=== PATIENT | female | born 1990 | race Caucasian/White ===

== ENCOUNTER 2017-09-15 16:37 | Emergency (ER) | payer OTHER, SELFPAY ==
[2017-09-15 17:40] LABS: Absolute Lymphocytes (CBC) 2.4 K/uL (0.7-4.9); Absolute Monocytes 0.5 K/uL (0.1-1.3); Absolute Neutrophil 5.7 K/uL (1.8-8.0); Basophils % 0.6 % (0-1.3); Hematocrit 41.4 % (36.0-45.0); Lymphocytes % 27.7 % (15.3-44.8); MCH 26.3 pg (27.0-35.0); MCV 79.6 fL (80-100); MPV 9.6 fL (7.6-11.3); Monocytes % 6.1 % (3.3-12.3)
[2017-09-15 17:47] LABS: ALT/SGPT 17 U/L (12-78); AST/SGOT 15 U/L (15-37); Albumin 3.7 g/dL (3.4-5.0); Alkaline Phosphatase 65 U/L (45-117); BUN Blood Urea Nitrogen 15 mg/dL (7-18); Bicarbonate 27 mmol/L (21-32); Bilirubin Direct < 0.1 mg/dL (0-0.2); Bilirubin Total 0.1 mg/dL (0.2-1.0); Glucose Level 88 mg/dL (74-106); Lipase 192 U/L (73-393); Potassium 3.3 mmol/L (3.5-5.1); Protein, Total 7.1 g/dL (6.4-8.2); Sodium Level 141 mmol/L (136-145)
--- NOTE | 2017-09-15 18:17 | RAD REPORT ---
EXAM DESCRIPTION: RAD - Chest Single View - 09/15/2017 6:01 pm CLINICAL HISTORY: CHEST PAIN Chest pain. COMPARISON: None FINDINGS: Portable technique limits examination quality. The lungs are grossly clear. The heart is normal in size. No displaced fractures. IMPRESSION: No acute intrathoracic process suspected.
--- NOTE | 2017-09-15 18:19 | RAD REPORT ---
EXAM DESCRIPTION: US - Abdomen Exam Limited - 09/15/2017 5:45 pm CLINICAL HISTORY: RUQ pain;Abd pain COMPARISON: No comparisons FINDINGS: The gallbladder demonstrates no gallstones. No pericholecystic fluid or gallbladder wall t hickening. The common bile duct is normal measuring 4 mm. The liver demonstrates no findings of intrahepatic biliary dilatation. IMPRESSION: Unremarkable examination.
[2017-09-15 18:52] LABS: Urine Blood NEGATIVE (NEG); Urine Glucose NEGATIVE (NEG); Urine Protein NEGATIVE (NEG); Urine pH 7.5 (5.0-7.0)
--- NOTE | 2017-09-15 18:53 | EDPHYS ---
Physician Documentation [facility] Name: Milena Peralta Age: 27 yrs Sex: Female : 1990 Arrival Date: 09/15/2017 Time: 16:40 Bed 19 Private MD: ED Physician Jaquan Gibbs HPI: 09/15 19:34 This 27 yrs old Female presents to ER via Ambulatory with complaints of Right jr8 sided chest pain. 19:34 Onset: The symptoms/episode began/occurred gradually, 2 day(s) ago, and became worse jr8 and became persistent. The symptoms do not radiate. Associated signs and symptoms: none. The symptoms are described as sharp. Modifying factors: The symptoms are alleviated by nothing, the symptoms are aggravated by nothing. Severity of pain: At its worst the pain was moderate in the emergency department the pain is unchanged. The patient has not experienced similar symptoms in the past. The patient has not recently seen a physician. Patient stated that she has this sharp pain under her right breast. Worse with cough . 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 - Social history:: Smoking status: Patient uses tobacco products, smokes one pack cigarettes per day. Patient uses alcohol, occasionally. - Ebola Screening: : Patient negative for fever greater than or equal to 101.5 degrees Fahrenheit, and additional compatible Ebola Virus Disease symptoms Patient denies exposure to infectious person Patient denies travel to an Ebola-affected area in the 21 days before illness onset. ROS: 19:34 Eyes: Negative for injury, pain, redness, and discharge, ENT: Negative for injury, jr8 pain, and discharge, Neck: Negative for injury, pain, and swelling, Abdomen/GI: Negative for abdominal pain, nausea, vomiting, diarrhea, and constipation, Back: Negative for injury and pain, MS/Extremity: Negative for injury and deformity, Skin: Negative for injury, rash, and discoloration, Neuro: Negative for headache, weakness, numbness, tingling, and seizure. 19:34 Cardiovascular: Positive for chest pain, with cough, with movement, Negative for edema, orthopnea, palpitations, paroxysmal nocturnal dyspnea. 19:34 Respiratory: Positive for cough, Negative for dyspnea on exertion, shortness of breath, sputum production, wheezing. Exam: 19:34 Eyes: Pupils equal round and reactive to light, extra-ocular motions intact. Lids and jr8 lashes normal. Conjunctiva and sclera are non-icteric and not injected. Cornea within normal limits. Periorbital areas with no swelling, redness, or edema. ENT: Nares patent. No nasal discharge, no septal abnormalities noted. Tympanic membranes are normal and external auditory canals are clear. Oropharynx with no redness, swelling, or masses, exudates, or evidence of obstruction, uvula midline. Mucous membranes moist. Neck: Trachea midline, no thyromegaly or masses palpated, and no cervical lymphadenopathy. Supple, full range of motion without nuchal rigidity, or vertebral point tenderness. No Meningismus. Chest/axilla: Normal chest wall appearance and motion. Nontender with no deformity. No lesions are appreciated. Cardiovascular: Regular rate and rhythm with a normal S1 and S2. No gallops, murmurs, or rubs. Normal PMI, no JVD. No pulse deficits. Respiratory: Lungs have equal breath sounds bilaterally, clear to auscultation and percussion. No rales, rhonchi or wheezes noted. No increased work of breathing, no retractions or nasal flaring. Abdomen/GI: Soft, non-tender, with normal bowel sounds. No distension or tympany. No guarding or rebound. No evidence of tenderness throughout. Back: No spinal tenderness. No costovertebral tenderness. Full range of motion. Skin: Warm, dry with normal turgor. Normal color with no rashes, no lesions, and no evidence of cellulitis. MS/ Extremity: Pulses equal, no cyanosis. Neurovascular intact. Full, normal range of motion. Neuro: Awake and alert, GCS 15, oriented to person, place, time, and situation. Cranial nerves II-XII grossly intact. Motor strength 5/5 in all extremities. Sensory grossly intact. Cerebellar exam normal. Normal gait. Vital Signs: 16:47 BP 126 / 94; Pulse 83; Resp 18; Temp 99.3(TE); Pulse Ox 99% on R/A; Weight 58.97 kg; hj Height 5 ft. 5 in. (165.10 cm); Pain 6/10; 18:20 BP 111 / 78; Pulse 70; Resp 16; Pulse Ox 98% on R/A; mh5 18:51 BP 123 / 98; Pulse 81; Resp 16; Temp 99.1(O); Pulse Ox 99% ; jl7 16:47 Body Mass Index 21.63 (58.97 kg, 165.10 cm) MDM: 16:51 Patient medically screened. [facility] 18:52 Data reviewed: vital signs, nurses notes, lab test result(s), radiologic studies, plain [facility] films, ultrasound, and as a result, I will discharge patient. Data interpreted: Pulse oximetry: on room air is 99 %. Interpretation: normal. Counseling: I had a detailed discussion with the patient and/or guardian regarding: the historical points, exam findings, and any diagnostic results supporting the discharge/admit diagnosis, lab results, radiology results, the need for outpatient follow up, a family practitioner, to return to the emergency department if symptoms worsen or persist or if there are any questions or concerns that arise at home. 09/15 16:52 Order name: Basic Metabolic Panel; Complete Time: 17:50 [facility] 09/15 16:52 Order name: CBC with Diff; Complete Time: 17:50 [facility] 09/15 16:52 Order name: Creatinine for Radiology; Complete Time: 17:50 [facility] 09/15 16:52 Order name: Hepatic Function; Complete Time: 17:50 [facility] 09/15 16:52 Order name: Lipase; Complete Time: 17:50 [facility] 09/15 18:20 Order name: Urine Dipstick--Ancillary (enter results); Complete Time: 18:54 09/15 16:50 Order name: Urine Dipstick-Ancillary (obtain specimen); Complete Time: 18:13 09/15 16:50 Order name: Urine Test (obtain specimen); Complete Time: 18:13 09/15 16:52 Order name: IV Saline Lock; Complete Time: 17:19 [facility] 09/15 16:52 Order name: Labs collected and sent; Complete Time: 17:19 [facility] 09/15 17:08 Order name: US Abdomen Limited; Complete Time: 18:21 [facility] 09/15 17:08 Order name: XRAY Chest (1 view); Complete Time: 18:21 [facility] 09/15 18:20 Order name: Urine --Ancillary (enter results); Complete Time: 18:54 bd Administered Medications: No medications were administered Disposition: 09/16 07:08 Co-signature as Attending Physician, Jaquan Gibbs MD. rn Disposition: 09/15/17 18:53 Discharged to Home. Impression: Chest wall pain. - Condition is Stable. - Discharge Instructions: Chest Wall Pain. - Prescriptions for Mobic 7.5 mg Oral Tablet - take 1 tablet by ORAL route once daily take with food; 20 tablet. - Medication Reconciliation Form, Thank You Letter, Antibiotic Education, Prescription Opioid Use form. - Follow up: Private Physician; When: 5 - 6 days; Reason: Recheck today's complaints, Continuance of care, Re-evaluation by your physician. - Problem is new. - Symptoms have improved. Signatures: Dispatcher [employer] EDMS Jaquan Gibbs MD MD rn Roszak, Josh, PA PA jr8 Kevin Estes RN RN hj Bryson, James, RN RN jb4 Corrections: (The following items were deleted from the chart) 09/15 19:05 18:53 09/15/2017 18:53 Discharged to Home. Impression: Chest wall pain. Condition is jb4 Stable. Forms are Medication Reconciliation Form, Thank You Letter, Antibiotic Education, Prescription Opioid Use. Follow up: Private Physician; When: 5 - 6 days; Reason: Recheck today's complaints, Continuance of care, Re-evaluation by your physician. Problem is new. Symptoms have improved. jr8
--- NOTE | 2017-09-15 18:53 | ER ---
Nurse's Notes [facility] Name: Milena Peralta Age: 27 yrs Sex: Female : 1990 Arrival Date: 09/15/2017 Time: 16:40 Bed 19 Private MD: Diagnosis: Chest wall pain Presentation: 09/15 16:42 Presenting complaint: Patient states: for a bout 5 days, patricia been having pain on my R hj upper abd and its getting worse, reports nausea; denies fever and chills; LMP- 08/30/17; pain radiates to the back;. Transition of care: patient was not received from another setting of care. Onset of symptoms was September 15, 2017. Risk Assessment: Do you want to hurt yourself or someone else? Patient reports no desire to harm self or others. Initial Sepsis Screen: Does the patient meet any 2 criteria? No. Patient's initial sepsis screen is negative. Does the patient have a suspected source of infection? No. Patient's initial sepsis screen is negative. Care prior to arrival: None. 16:42 Method Of Arrival: Ambulatory 16:42 Acuity: LYNNETTE 3 Triage Assessment: 16:46 General: Appears in no apparent distress. uncomfortable, Behavior is calm, cooperative, hj appropriate for age. Pain: Complains of pain in right upper quadrant. GI: Reports upper abdominal pain, nausea. 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 - Social history:: Smoking status: Patient uses tobacco products, smokes one pack cigarettes per day. Patient uses alcohol, occasionally. - Ebola Screening: : Patient negative for fever greater than or equal to 101.5 degrees Fahrenheit, and additional compatible Ebola Virus Disease symptoms Patient denies exposure to infectious person Patient denies travel to an Ebola-affected area in the 21 days before illness onset. Screenin:47 Abuse screen: Denies threats or abuse. Denies injuries from another. Nutritional hj screening: No deficits noted. Tuberculosis screening: No symptoms or risk factors identified. Fall Risk None identified. Assessment: 16:47 GI: Bowel sounds present X 4 quads. Abd is soft Abdomen is tender to palpation. hj 17:00 General: Appears in no apparent distress. uncomfortable, Behavior is calm, cooperative, jl7 appropriate for age. Pain: Complains of pain in right upper quadrant Pain does not radiate. Pain currently is 6 out of 10 on a pain scale. Quality of pain is described as pain. Neuro: Level of Consciousness is awake, alert, obeys commands, Oriented to person, place, time, situation. Cardiovascular: Patient's skin is warm and dry. Respiratory: Airway is patent Respiratory effort is even, unlabored, Respiratory pattern is regular, symmetrical. GI: Bowel sounds present X 4 quads. Abd is soft Abdomen is tender to palpation in right upper quadrant Reports nausea, Patient currently denies diarrhea. : No signs and/or symptoms were reported regarding the genitourinary system. EENT: No signs and/or symptoms were reported regarding the EENT system. Derm: Skin is pink, warm \T\ dry. Musculoskeletal: No signs and/or symptoms reported regarding the musculoskeletal system. 18:00 Reassessment: No changes from previously documented assessment. Patient and/or family jl7 updated on plan of care and expected duration. Pain level reassessed. Patient is alert, oriented x 3, equal unlabored respirations, skin warm/dry/pink. 18:51 Reassessment: MYCHAL Sarmiento at bedside discussing plan of care. jl7 Vital Signs: 16:47 BP 126 / 94; Pulse 83; Resp 18; Temp 99.3(TE); Pulse Ox 99% on R/A; Weight 58.97 kg; hj Height 5 ft. 5 in. (165.10 cm); Pain 6/10; 18:20 BP 111 / 78; Pulse 70; Resp 16; Pulse Ox 98% on R/A; mh5 18:51 BP 123 / 98; Pulse 81; Resp 16; Temp 99.1(O); Pulse Ox 99% ; jl7 16:47 Body Mass Index 21.63 (58.97 kg, 165.10 cm) ED Course: 16:40 Patient arrived in ED. do 16:45 Triage completed. hj 16:47 Arm band placed on left wrist. 16:51 [facility] jr8 16:51 Jaquan Gibbs MD is Attending Physician. jr8 16:53 Gordon Patel, RN is Primary Nurse. jl7 17:18 Initial lab(s) drawn, by me, sent to lab. Inserted saline lock: 20 gauge in right mh5 antecubital area, using aseptic technique. Blood collected. 17:19 Patient has correct armband on for positive identification. Placed in gown. Bed in low mh5 position. Call light in reach. Side rails up X 1. Warm blanket given. Pulse ox on. NIBP on. 17:19 Basic Metabolic Panel Sent. 5 17:19 CBC with Diff Sent. 5 17:19 Creatinine for Radiology Sent. 5 17:19 Hepatic Function Sent. 5 17:19 Lipase Sent. 5 17:43 Ultrasound completed. Patient tolerated well. aa4 17:43 US Abdomen Limited In Process Unspecified. EDMS 18:01 XRAY Chest (1 view) In Process Unspecified. EDMS 19:01 No provider procedures requiring assistance completed. IV discontinued, intact, jb4 bleeding controlled, No redness/swelling at site. Pressure dressing applied. Administered Medications: No medications were administered Outcome: 18:53 Discharge ordered by . jr8 19:01 Discharged to home ambulatory. jb4 19:01 Condition: stable 19:01 Discharge instructions given to patient, Instructed on discharge instructions, follow up and referral plans. medication usage, Demonstrated understanding of instructions, follow-up care, medications, Prescriptions given X 1. 19:05 Patient left the ED. jb4 Signatures: Dispatcher [employer] EDUT EucedaMyriam bautista aa4 Kayla Mohan, JOSE G RN aa5 Torsten Matthew PA PA jr8 Kevin Estes RN RN hj Ogletree, Danielle do Bryson, James, RN RN jb4 Martinez, Maria [facility] Gordon Patel, RN RN jl7 Corrections: (The following items were deleted from the chart) 16:49 16:47 58.97 kg; Height 5 ft. 5 in.; BMI: 21.6; Pain 6/10; [facility] 18:47 16:52 Kayla Mohan, RN is Primary Nurse. [email or web address] aaBarron 18:47 16:53 Primary Nurse role handed off by Kayla Mohan, JOSE G jl7 aa
[2017-09-15 19:12] VITALS: BP 123/98; TEMP 99.1; O2SAT 99
== END 2017-09-15 19:05 | disposition home or self-care (01) ==
LOC: ER 16:37
DX: R07.89 Other chest pain (principal); F17.210 Nicotine dependence, cigarettes, uncomplicated
CPT/HCPCS: 36415; 71045; 76705; 80048; 80076; 81003; 81025; 83690; 85025; 99284

== ENCOUNTER 2017-12-31 10:53 | Emergency (ER) | payer SELFPAY ==
--- NOTE | 2017-12-31 14:19 | RAD REPORT ---
EXAM DESCRIPTION: CT - CTHCSPWOC - 12/31/2017 2:13 pm CLINICAL HISTORY: Fall, head, facial and neck pain COMPARISON: None. TECHNIQUE: Axial 5 mm thick images of the head were obtained. Axial 2 mm thick images of the cervic al spine were obtained with sagittal and coronal reconstruction images generated and reviewed. All CT scans are performed using dose optimization technique as appropriate and may include automated exposure control or mA/KV adjustment according to patient size. FINDINGS: No intracranial hemorrhage, mass, edema or acute intracranial finding. No extra-axial fluid collectio ns. Mastoid air cells are clear. Cervical body height and alignment are normal. No disk space narrowing. No fracture or acute bony abn ormality. No paraspinal mass or hematoma. IMPRESSION: Negative CT head examination for acute or significant finding. Orbits, sinuses and facial bones are separately detailed. Negative CT cervical spine examination for acute or significant finding.
--- NOTE | 2017-12-31 14:23 | RAD REPORT ---
EXAM DESCRIPTION: CT - Facial Bones W/ Mpr - 12/31/2017 2:13 pm CLINICAL HISTORY: Fall, facial pain COMPARISON: None. TECHNIQUE: Axial 2 millimeter thick images of the facial bones were obtained with sagittal and coron al reconstruction imaging. All CT scans are performed using dose optimization technique as appropriate and may include automated exposure control or mA/KV adjustment according to patient size. FINDINGS: No mandible fracture. There is minimal soft tissue injury anterior to the midline mandible . Condyles are normally positioned. Mastoid air cells are clear. No facial bone fractures seen. Paran jin sinuses are clear. No globe or orbital content abnormality. No foreign body or air in the soft t issues. IMPRESSION: No fracture or significant facial injury identifiable.
[2017-12-31] MEDS ORDERED: TETANUS & DIPHTHERIA TOX,ADULT 0.5 ML VIAL ONE (14:57)
--- NOTE | 2017-12-31 15:00 | EDPHYS ---
Physician Documentation [facility] Name: Milena Peralta Age: 27 yrs Sex: Female : 1990 Arrival Date: 12/31/2017 Time: 10:56 Bed Treatment Private MD: ED Physician Haroldo Ch HPI: 12/31 13:45 This 27 yrs old Female presents to ER via Ambulatory with complaints of cp Laceration To Chin. 13:45 The patient has a laceration occurred at home, The injury was resulted from fall while cp walking. Onset: The symptoms/episode began/occurred last night, at 23:00. Associated signs and symptoms: Pertinent positives: loss of consciousness, Pertinent negatives: heavy bleeding. 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 - Social history:: Smoking status: Patient uses tobacco products, smokes one-half pack cigarettes per day. - Ebola Screening: : No symptoms or risks identified at this time. ROS: 13:50 Constitutional: Negative for body aches, chills, fever, poor PO intake. cp 13:50 Eyes: Negative for injury, pain, redness, and discharge. cp 13:50 ENT: Positive for jaw pain, Negative for drainage from ear(s), ear pain, sore throat, difficulty swallowing, difficulty handling secretions. 13:50 Neck: Positive for bony tenderness, Negative for stiffness. 13:50 Respiratory: Negative for cough, wheezing. 13:50 Abdomen/GI: Negative for abdominal pain, vomiting, diarrhea, constipation. 13:50 Skin: Positive for laceration(s), of the chin, Negative for cellulitis, rash. 13:50 Neuro: Positive for headache, loss of consciousness, Negative for altered mental status, weakness. 13:50 All other systems are negative. Exam: 14:00 Constitutional: The patient appears in no acute distress, alert, awake, non-toxic, well cp developed, well nourished. 14:00 Eyes: Pupils equal round and reactive to light, extra-ocular motions intact. Lids and cp lashes normal. Conjunctiva and sclera are non-icteric and not injected. Cornea within normal limits. Periorbital areas with no swelling, redness, or edema. 14:00 Head/face: Noted is a laceration(s), that is superficial, 2 cm(s), of the chin, pain bilateral lower jaw. 14:00 ENT: External ear(s): are unremarkable, Ear canal(s): are normal, clear, TM's: dullness, bilaterally, Nose: is normal, Mouth: Lips: moist, Oral mucosa: pink and intact, moist, Posterior pharynx: is normal, airway is patent, no erythema, no exudate, Dental exam: normal, Voice: is normal. 14:00 Neck: C-spine: C-collar placed in ED, vertebral tenderness, that is mild, crepitus, is not appreciated. 14:00 Chest/axilla: Inspection: normal, Palpation: is normal, no crepitus, no tenderness. 14:00 Cardiovascular: Rate: normal, Rhythm: regular. 14:00 Respiratory: the patient does not display signs of respiratory distress, Respirations: normal, no use of accessory muscles, no retractions, no splinting, no tachypnea, labored breathing, is not present, Breath sounds: are clear throughout, no decreased breath sounds, no stridor, no wheezing. 14:00 Abdomen/GI: Inspection: abdomen appears normal, Palpation: abdomen is soft and non-tender, in all quadrants. 14:00 Back: pain, is absent, ROM is normal. 14:00 Musculoskeletal/extremity: Exam is negative for decreased range of motion, deformity, injury. 14:00 Neuro: Orientation: to person, place \T\ time. Mentation: is normal, Cerebellar function: is grossly normal, Motor: moves all fours, strength is normal, Sensation: is normal. Vital Signs: 11:17 BP 118 / 78; Pulse 86; Resp 16 S; Temp 98.6(TE); Pulse Ox 100% on R/A; Weight 58.97 kg aa5 (R); Height 5 ft. 5 in. (165.10 cm) (R); Pain 6/10; 11:17 Body Mass Index 21.63 (58.97 kg, 165.10 cm) aa5 MDM: 13:07 Patient medically screened. [facility] 14:00 Differential diagnosis: superficial laceration, facial fracture, dental injury. cp 14:55 Data reviewed: vital signs, nurses notes, radiologic studies, CT scan, and as a result, cp I will discharge patient. 14:55 Counseling: I had a detailed discussion with the patient and/or guardian regarding: the cp historical points, exam findings, and any diagnostic results supporting the discharge/admit diagnosis, radiology results, to return to the emergency department if symptoms worsen or persist or if there are any questions or concerns that arise at home. Special discussion: Based on the patient's history, exam and DX evaluation, there is no indication for emergent intervention or inpatient TX. It is understood by the patient/guardian that if the SXs persist or worsen they need to return immediately for re-evaluation. ED course: VSS. Wound cleaned and steri strips applied to wound. Will discharge to home for continued monitoring. 12/31 13:41 Order name: CT Facial Bones W/O Con; Complete Time: 14:25 12/31 14:26 Interpretation: Report reviewed. 12/31 13:41 Order name: CT Head C Spine; Complete Time: 14:25 12/31 14:26 Interpretation: Reviewed report. 12/31 14:41 Order name: Wound Care: please clean and dress wound with steri strips; Complete Time: cp 15:22 Administered Medications: 14:52 Drug: Tetanus-Diphtheria Toxoid Adult 0.5 ml {Traffic Officer: [email or web address]. Exp: ss 10/27/2020. Lot #: [id number]. } Route: IM; Site: left deltoid; 15:12 Follow up: Response: No adverse reaction ss Disposition: 12/31/17 14:59 Discharged to Home. Impression: Laceration of Chin, Other slipping, tripping and stumbling and falls, Concussion with loss of consciousness of unspecified duration. - Condition is Stable. - Discharge Instructions: Concussion, Adult, Head Injury, Adult, Facial Laceration. - Prescriptions for Keflex 500 mg Oral Capsule - take 1 capsule by ORAL route every 8 hours for 10 days; 30 capsule. - Medication Reconciliation Form, Thank You Letter, Antibiotic Education, Prescription Opioid Use form. - Follow up: Private Physician; When: 48 Hours; Reason: Wound Recheck. - Problem is new. - Symptoms have improved. Addendum: 01/03/2018 08:10 Co-signature as Attending Physician, Haroldo Ch MD I agree with the assessment and c whatley plan of care. Signatures: Dispatcher [employer] EDHaroldo Alaniz MD MD cha Calderon, Audri, RN RN aa5 Maria E Quinones RN RN ss Haroldo Cuevas PA PA cp Corrections: (The following items were deleted from the chart) 12/31 15:31 14:59 12/31/2017 14:59 Discharged to Home. Impression: Laceration of Chin; Other ss slipping, tripping and stumbling and falls; Concussion with loss of consciousness of unspecified duration. Condition is Stable. Forms are Medication Reconciliation Form, Thank You Letter, Antibiotic Education, Prescription Opioid Use. Follow up: Private Physician; When: 48 Hours; Reason: Wound Recheck. Problem is new. Symptoms have improved. cp
--- NOTE | 2017-12-31 15:00 | ER ---
Nurse's Notes [facility] Name: Milena Peralta Age: 27 yrs Sex: Female : 1990 Arrival Date: 12/31/2017 Time: 10:56 Bed Treatment Private MD: Diagnosis: Laceration of Chin;Other slipping, tripping and stumbling and falls;Concussion with loss of consciousness of unspecified duration Presentation: 12/31 11:15 Presenting complaint: Patient states: "I missed a step and fell onto my chin last aa5 night". pt c/o jaw pain and laceration to chin that measures approximately 1 cm long, no active bleeding noted. Transition of care: patient was not received from another setting of care. Complicating Factors: There are no complicating factors for this patient. Onset of symptoms was December 30, 2017. Risk Assessment: Do you want to hurt yourself or someone else? Patient reports no desire to harm self or others. Initial Sepsis Screen: Does the patient meet any 2 criteria? No. Patient's initial sepsis screen is negative. Does the patient have a suspected source of infection? No. Patient's initial sepsis screen is negative. Care prior to arrival: None. 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 - Social history:: Smoking status: Patient uses tobacco products, smokes one-half pack cigarettes per day. - Ebola Screening: : No symptoms or risks identified at this time. Screenin:06 Abuse screen: Denies threats or abuse. Denies injuries from another. Nutritional ss screening: No deficits noted. Tuberculosis screening: No symptoms or risk factors identified. Never had TB. Fall Risk None identified. Assessment: 13:06 General: Appears uncomfortable, Behavior is calm, cooperative, Denies fever, feeling ss ill, fatigue, chills. Pain: Complains of pain in chin, right jaw and left jaw Pain currently is 8 out of 10 on a pain scale. Quality of pain is described as aching, Pain began last night after slipping on stairs Is continuous, Aggravated by opening mouth. Neuro: Level of Consciousness is awake, alert, obeys commands, Oriented to person, place, time, situation. Cardiovascular: Capillary refill < 3 seconds is brisk in bilateral fingers Patient's skin is warm and dry. Respiratory: Airway is patent Respiratory effort is even, unlabored, Respiratory pattern is regular, symmetrical. GI: No signs and/or symptoms were reported involving the gastrointestinal system. EENT: Oral mucosa is moist. Derm: Skin is pink, warm \\T\\ dry. Musculoskeletal: Circulation, motion, and sensation intact. Range of motion: intact in all extremities, Swelling absent. Injury Description: Laceration sustained to chin is clean, 0.5 to 2.5 cm long, not bleeding, was sustained last night. 13:44 Reassessment: c collar applied as requested by MYCHAL Travis. ss Vital Signs: 11:17 BP 118 / 78; Pulse 86; Resp 16 S; Temp 98.6(TE); Pulse Ox 100% on R/A; Weight 58.97 kg aa5 (R); Height 5 ft. 5 in. (165.10 cm) (R); Pain 6/10; 11:17 Body Mass Index 21.63 (58.97 kg, 165.10 cm) aa5 ED Course: 10:56 Patient arrived in ED. rg4 11:15 Arm band placed on. aa5 11:16 Triage completed. aa5 13:04 Haroldo Cuevas PA is PHCP. cp 13:04 Haroldo Ch MD is Attending Physician. cp 13:06 Maria E Quinones, JOSE G is Primary Nurse. ss 13:06 Patient has correct armband on for positive identification. Bed in low position. Call ss light in reach. Side rails up X 1. 14:13 CT Facial Bones W/O Con In Process Unspecified. EDMS 14:13 CT Head C Spine In Process Unspecified. EDMS 15:30 No provider procedures requiring assistance completed. Patient did not have IV access ss during this emergency room visit. Wound care: to laceration located on chin was cleaned with Hibiclens, dressed with steri strips. . 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 Exp: ss 10/27/2020. Lot #: [id number]. } Route: IM; Site: left deltoid; 15:12 Follow up: Response: No adverse reaction Outcome: 14:59 Discharge ordered by . cp 15:31 Discharged to home ambulatory. ss 15:31 Condition: good 15:31 Discharge instructions given to patient, Instructed on discharge instructions, follow up and referral plans. medication usage, wound care, Demonstrated understanding of Prescriptions given X 1. 15:31 Patient left the ED. Signatures: Dispatcher [employer] Kayla Castellanos RN RN aa5 Maria E Quinones RN RN ss Haroldo Cuevas, MYCHAL PA Martha Apodaca4
[2017-12-31 16:06] VITALS: BP 118/78; TEMP 98.6; O2SAT 100
== END 2017-12-31 15:31 | disposition home or self-care (01) ==
LOC: ER 10:53
DX: S01.81XA Laceration without foreign body of other part of head, initial encounter (principal); W01.0XXA Fall on same level from slipping, tripping and stumbling without subsequent striking against object, initial encounter; Y93.01 Activity, walking, marching and hiking; Y92.009 Unspecified place in unspecified non-institutional (private) residence as the place of occurrence of the external cause; Z23 Encounter for immunization; F17.210 Nicotine dependence, cigarettes, uncomplicated
CPT/HCPCS: 70450; 70486; 72125; 76377; 90714; 99284

== ENCOUNTER 2021-10-06 12:58 | Emergency (ER) | payer SELFPAY ==
[2021-10-06 13:32] LABS: Urine Blood Negative (Negative); Urine Glucose Trace (Negative); Urine Protein Trace (Negative); Urine Specific Gravity >=1.030 (1.005-1.030); Urine pH 5.5 (5.0-7.0)
[2021-10-06 13:34] LABS: Absolute Lymphocytes (CBC) 0.9 K/uL (0.7-4.9); Hematocrit 44.6 % (36.0-45.0); Lymphocytes % 9.8 % (15.3-44.8); MPV 8.6 fL (7.6-11.3); RBC Red Blood Cell Count 5.72 M/uL (3.86-4.86)
[2021-10-06 13:58] LABS: Albumin 3.3 g/dL (3.4-5.0); Bilirubin Total 0.2 mg/dL (0.2-1.0); Potassium 3.1 mmol/L (3.5-5.1); Protein, Total 7.2 g/dL (6.4-8.2)
[2021-10-06] MEDS ORDERED: MORPHINE 4 MG/ML SYR ONE (14:16)
[2021-10-06] MEDS ORDERED: ONDANSETRON 4 MG/2 ML VIAL ONE (14:16)
--- NOTE | 2021-10-06 14:25 | RAD REPORT ---
EXAM DESCRIPTION: US - Transvaginal Study Probe - 10/06/2021 1:55 pm CLINICAL HISTORY: right sided pelvic pain COMPARISON: Abdomen Pelvis W Contrast dated 10/06/2021 TECHNIQUE: Endovaginal sonography was performed. FINDINGS: The 16 millimeter thin-walled anechoic cysts present in the right ovary. Bilateral subcent imeter ovarian cysts or follicles present. Doppler evaluation shows normal blood flow within the ovar nimesh stroma. No evidence for ovarian cyst rupture or hemorrhage on the left. Along the superior margin of the right ovary there is heterogeneous echogenicity that is not clearly defined. This is possibly bowel. Rupture or leakage from an ovarian cyst without hemorrhagic component is possible. A signific ant adnexal finding is not suspected. Uterus is 7.9 x 3.8 x 4.6 cm. No myometrial mass identified. Endometrial stripe is within normal rang e for age measuring 5-6 mm. A punctate nonshadowing hyperechoic focus is seen within the endometrial tissue. This is nonspecific. A nonshadowing endometrial calcification be possible. Air introduced as part of the endovaginal ultrasound examination can result in hyperechoic endometrial focus. An echoge nithin mass or polyp unlikely but not excluded. Re-evaluation could be performed in 6 months. IMPRESSION: No acute or emergent uterine, ovarian or adnexal finding identifiable. Right adnexa slig htly heterogeneous which could be leakage or rupture of a small right ovarian cyst. No significant ri ght ovarian or right adnexal finding suspected. Punctate echogenic endometrial focus in the fundus is very likely benign but can be monitored on a fo llow-up endovaginal ultrasound in 6 months.
--- NOTE | 2021-10-06 14:30 | RAD REPORT ---
EXAM DESCRIPTION: CT - Abdomen Pelvis W Contrast - 10/06/2021 2:13 pm CLINICAL HISTORY: right lower abd pain, rule out appendicitis COMPARISON: Transvaginal Study Probe dated 10/06/2021; CT HEAD SPINE CAP W CONTRAST dated 01/25/2011 TECHNIQUE: Biphasic, helical CT imaging of the abdomen and pelvis was performed following 100 ml non -ionic IV contrast. No oral contrast administered. All CT scans are performed using dose optimization technique as appropriate and may include automated exposure control or mA/KV adjustment according to patient size. FINDINGS: No suspicious findings in the lung bases. The liver, spleen, and pancreas show no suspicious findings. Gallbladder is tightly contracted. No bi liary tree dilatation. Symmetric renal function is seen with no hydronephrosis or suspicious renal mass. No pyelonephritis o r acute parenchymal process. Bladder is fully contracted limiting assessment. There is questionable c ongestion of the fat adjacent to the collapsed bladder. No uterine suspicious finding. There may be a small 15 millimeter fibroid along the left dome of the fundus. Left ovary and left adnexa are unremarkable. Small cyst is present in the right ovary. Right adnexa is slightly heterogeneous in appearance. There could be a small amount of fluid or blood from a cyst is rupture or leakage. The ultrasound did not show a collapsed or involuting right ovarian cys t. Significant adnexal finding not suspected. Normal-sized appendix is seen with air in the lumen. No dilated bowel loops or bowel wall thickening. No free air, free fluid or inflammatory stranding. No hernia, mass or bulky lymphadenopathy. No suspicious bony findings. IMPRESSION: No appendicitis or other surgically emergent finding identifiable. Right adnexa slightly congested or heterogeneous in appearance. There could be a minimal amount of bl ood or fluid from a leaking right ovarian cyst. An involuted cyst was not seen at sonography. Signifi cant right adnexal pathology is not suspected. Fatty tissues adjacent to the collapsed urinary bladder are mildly congested or edematous. Cystitis c annot be excluded but would need correlation with any supporting clinical or laboratory findings. The re is no pyelonephritis.
--- NOTE | 2021-10-06 14:33 | EDPHYS ---
Physician Documentation [facility] Name: Milena Peralta Age: 31 yrs Sex: Female : 1990 Arrival Date: 10/06/2021 Time: 12:59 Bed 26 Private MD: ED Physician Jaquan Gibbs HPI: 10/06 13:43 This 31 yrs old Female presents to ER via Ambulatory with complaints of Pelvic Pain, rn Back Pain, Nausea/Vomiting. 13:44 The patient presents with abdominal pain right lower quadrant. Onset: The rn symptoms/episode began/occurred 2 day(s) ago. The symptoms do not radiate. Associated signs and symptoms: Pertinent positives: nausea and vomiting, Pertinent negatives: blood in stools, fever, hematuria, shortness of breath, vaginal discharge, vomiting blood. The symptoms are described as sharp, stabbing. Modifying factors: The symptoms are alleviated by nothing, the symptoms are aggravated by movement, touching the area. Severity of pain: At its worst the pain was moderate in the emergency department the pain is unchanged. The patient has not experienced similar symptoms in the past. Pt reports RLQ and back pain, began 2 days ago, + subjective fever, no vaginal discharge, last LMP 1 month ago, does not believe she is . + nausea and vomiting but not sure if from pain. + painful car ride over here with each bump. . 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 - Social history:: Smoking status: Patient reports the use of cigarette tobacco products, smokes one pack cigarettes per day. - Family history:: not pertinent. - Hospitalizations: : No recent hospitalization is reported. ROS: 13:44 Constitutional: Negative for weight loss Eyes: Negative for injury, pain, redness, and rn emergency room, Cardiovascular: Negative for chest pain, palpitations, and edema, Respiratory: Negative for shortness of breath, cough, wheezing, and pleuritic chest pain, Abdomen/GI: + RLQ abd pain and nausea/vomiting Back: + lower back pain : Negative for injury, bleeding, discharge, and swelling, MS/Extremity: Negative for injury and deformity, Skin: Negative for injury, rash, and discoloration, Neuro: Negative for headache, weakness, numbness, tingling, and seizure. Exam: 13:44 Constitutional: This is a well developed, well nourished patient who is awake, alert, rn and in no acute distress. Head/Face: Normocephalic, atraumatic. Cardiovascular: Regular rate and rhythm. No pulse deficits. Respiratory: No increased work of breathing, no retractions or nasal flaring. Abdomen/GI: soft, + right lower quadrant abd tenderness with guarding, no rebound Skin: Warm, dry MS/ Extremity: Pulses equal, no cyanosis. Neuro: Awake and alert, GCS 15, oriented to person, place, time, and situation. Cranial nerves II-XII grossly intact. Motor strength 5/5 in all extremities. Sensory grossly intact. Cerebellar exam normal. Normal gait. Vital Signs: 13:02 BP 143 / 101; Pulse 96; Resp 16 S; Temp 97.5(TE); Pulse Ox 99% on R/A; Weight 54.43 kg aa5 (R); Height 5 ft. 4 in. (162.56 cm) (R); 13:37 BP 143 / 101; Pulse 88; Resp 18; Pulse Ox 100% on R/A; Pain 7/10; eh3 14:12 BP 161 / 119; Pulse 85; Resp 18; Pulse Ox 100% on R/A; Pain 8/10; eh3 13:02 Body Mass Index 20.60 (54.43 kg, 162.56 cm) aa5 MDM: 13:05 Patient medically screened. rn 14:31 Differential diagnosis: appendicitis, Ectopic , Endometriosis, non-specific rn abd pain, Ovarian Torsion, Ureterolithiasis, urinary tract infection, ovarian cyst, ruptured ovarian cyst. Data reviewed: vital signs, nurses notes, lab test result(s), radiologic studies, CT scan, ultrasound, and as a result, I will discharge patient. Counseling: I had a detailed discussion with the patient and/or guardian regarding: the historical points, exam findings, and any diagnostic results supporting the discharge/admit diagnosis, lab results, radiology results, the need for outpatient follow up, to return to the emergency department if symptoms worsen or persist or if there are any questions or concerns that arise at home. Response to treatment: the patient's symptoms have mildly improved after treatment, and as a result, I will discharge patient. Special discussion: Based on the patient's Hx, exam, and Dx evaluation, there is no indication for emergent surgery or inpatient Tx. It is understood by the patient/guardian that if the Sx's persist or worsen they need to return immediately for re-evaluation. I discussed with the patient/guardian in detail that at this point there is no indication for admission to the hospital. It is understood, however, that if the symptoms persist or worsen the patient needs to return immediately for re-evaluation. 10/06 13:14 Order name: CBC with Diff; Complete Time: 13:59 rn 10/06 13:14 Order name: CMP; Complete Time: 13:59 rn 10/06 13:14 Order name: Lipase; Complete Time: 13:59 rn 10/06 13:14 Order name: CT Abd/Pelvis - IV Contrast Only; Complete Time: 14:31 rn 10/06 13:32 Order name: Urine Dipstick-Ancillary; Complete Time: 13:59 EDMS 10/06 13:14 Order name: IV Saline Lock; Complete Time: 13:33 rn 10/06 13:14 Order name: Labs collected and sent; Complete Time: 13:33 rn 10/06 13:14 Order name: Urine Dipstick-Ancillary (obtain specimen); Complete Time: 13:33 rn 10/06 13:14 Order name: Urine Test (obtain specimen); Complete Time: 13:33 rn 10/06 13:56 Order name: Transvaginal Study Probe; Complete Time: 14:29 EDMS Administered Medications: 14:19 Drug: Zofran (Ondansetron) 4 mg Route: IVP; Site: right antecubital; eh3 14:42 Follow up: Response: Nausea is decreased eh3 14:20 Drug: morphine 4 mg Route: IVP; Infused Over: 4 mins; Site: right antecubital; eh3 14:41 Follow up: Response: No adverse reaction; Pain is decreased eh3 Disposition Summary: 10/06/21 14:33 Discharge Ordered Location: Home rn Problem: new rn Symptoms: have improved rn Condition: Stable rn Diagnosis - Other and unspecified ovarian cysts - Ruptured ovarian cyst rn Followup: rn - With: Private Physician - When: As needed - Reason: Recheck today's complaints, Re-evaluation by your physician Discharge Instructions: - Discharge Summary Sheet rn - Ovarian Cyst rn Forms: - Medication Reconciliation Form rn - Thank You Letter rn - Antibiotic acetylene burner - Prescription Opioid Use rn Prescriptions: - Diclofenac Sodium 75 mg Oral tablet,delayed release (DR/EC) - take 1 tablet by ORAL route 2 times per day; 20 tablet; Refills: 0, Product rn Selection Permitted - Cipro 500 mg Oral Tablet - take 1 tablet by ORAL route every 12 hours for 7 days; 14 tablet; Refills: 0, rn Product Selection Permitted Signatures: Dispatcher [employer] EDMS Jaquan Gibbs MD MD rn Calderon, Audri RN RN aa5 Leilani Abad RN RN eh3 Corrections: (The following items were deleted from the chart) 13:55 13:15 Pelvis Complete+US.RAD.SHAWN ordered. [facility]
--- NOTE | 2021-10-06 14:33 | ER ---
Nurse's Notes [facility] Name: Milena Peralta Age: 31 yrs Sex: Female : 1990 Arrival Date: 10/06/2021 Time: 12:59 Bed 26 Private MD: Diagnosis: Other and unspecified ovarian cysts-Ruptured ovarian cyst Presentation: 10/06 13:02 Chief complaint: Patient states: pelvic pain and low back pain that began Wednesday. Pt aa5 also reports nausea and vomiting. Reports vaginal spotting for 2 days a few days ago. 13:02 Onset of symptoms was September 2021. aa5 13:02 Acuity: LYNNETTE 3 aa5 13:02 Method Of Arrival: Ambulatory aa5 13:02 Coronavirus screen: At this time, the client does not indicate any symptoms associated aa5 with coronavirus-19. Ebola Screen: Patient denies travel to an Ebola-affected area in the 21 days before illness onset. Initial Sepsis Screen: Does the patient meet any 2 criteria? No. Patient's initial sepsis screen is negative. Does the patient have a suspected source of infection? No. Patient's initial sepsis screen is negative. Risk Assessment: Do you want to hurt yourself or someone else? Patient reports no desire to harm self or others. Triage Assessment: 13:34 General: Appears in no apparent distress. comfortable, Behavior is calm, cooperative, eh3 appropriate for age. Pain: Complains of pain in right lower quadrant and left lower quadrant Pain radiates to left low back and right low back Pain currently is 7 out of 10 on a pain scale. Quality of pain is described as crampy, pressure, radiating, Pain began 2-3 days ago. Is continuous. Neuro: Level of Consciousness is awake, alert, obeys commands, Oriented to person, place, time, situation. Cardiovascular: Capillary refill < 3 seconds Patient's skin is warm and dry. Respiratory: Airway is patent Respiratory effort is even, unlabored. GI: Reports lower abdominal pain, cramping, intolerance of food, nausea, vomiting. GI: Abdomen is flat, non-distended. :. : Reports cramping, flank(s). Derm: No signs and/or symptoms reported regarding the dermatologic system. Musculoskeletal: Circulation, motion, and sensation intact. Range of motion: intact in all extremities. 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 - Social history:: Smoking status: Patient reports the use of cigarette tobacco products, smokes one pack cigarettes per day. - Family history:: not pertinent. - Hospitalizations: : No recent hospitalization is reported. Screenin:39 Abuse screen: Denies threats or abuse. Denies injuries from another. Nutritional eh3 screening: No deficits noted. Tuberculosis screening: No symptoms or risk factors identified. Fall Risk None identified. Assessment: 13:39 Neuro: Level of Consciousness is awake, alert, obeys commands, Oriented to person, eh3 place, time, situation. 13:39 Reassessment: No changes from previously documented assessment. See triage assessment. 3 Vital Signs: 13:02 BP 143 / 101; Pulse 96; Resp 16 S; Temp 97.5(TE); Pulse Ox 99% on R/A; Weight 54.43 kg aa (R); Height 5 ft. 4 in. (162.56 cm) (R); 13:37 BP 143 / 101; Pulse 88; Resp 18; Pulse Ox 100% on R/A; Pain 7/10; eh3 14:12 BP 161 / 119; Pulse 85; Resp 18; Pulse Ox 100% on R/A; Pain 8/10; eh3 13:02 Body Mass Index 20.60 (54.43 kg, 162.56 cm) [facility] ED Course: 12:59 Patient arrived in ED. am2 13:02 Arm band placed on Patient placed in an exam room, on a stretcher. aa5 13:05 aJquan Gibbs MD is Attending Physician. rn 13:17 Leilani Abad, JOSE G is Primary Nurse. 3 13:21 Triage completed. aa5 13:34 Inserted saline lock: 20 gauge in right antecubital area, using aseptic technique. eh3 Blood collected. 13:39 Patient has correct armband on for positive identification. Bed in low position. Call 3 light in reach. Side rails up X2. Client placed on continuous cardiac and pulse oximetry monitoring. NIBP monitoring applied. Door closed. Noise minimized. Lights dimmed. 13:57 Transvaginal Study Probe In Process Unspecified. EDMS 14:15 CT Abd/Pelvis - IV Contrast Only In Process Unspecified. EDMS 14:55 No provider procedures requiring assistance completed. IV discontinued, intact, eh3 bleeding controlled, No redness/swelling at site. Pressure dressing applied. Administered Medications: 14:19 Drug: Zofran (Ondansetron) 4 mg Route: IVP; Site: right antecubital; eh3 14:42 Follow up: Response: Nausea is decreased eh3 14:20 Drug: morphine 4 mg Route: IVP; Infused Over: 4 mins; Site: right antecubital; eh3 14:41 Follow up: Response: No adverse reaction; Pain is decreased eh3 Medication: 14:56 VIS not applicable for this client. eh3 Outcome: 14:33 Discharge ordered by . rn 14:55 Condition: stable eh3 14:55 Discharge instructions given to patient, Instructed on discharge instructions, follow up and referral plans. medication usage, Demonstrated understanding of instructions, follow-up care, medications, Prescriptions given X 2. 14:55 Discharged to home ambulatory, with significant other. eh3 15:02 Patient left the ED. eh3 Signatures: Dispatcher [employer] EDMS Jaquan Gibbs MD MD rn Calderon, Audri RN RN [id number] Myriam Gould Erin, JOSE G RN eh3 Corrections: (The following items were deleted from the chart) 13:23 13:02 Chief complaint: Patient states: pelvic pain and low back pain that began [place]. aa5 Pt also reports nausea and vomiting. aa5
[2021-10-06 15:14] VITALS: TEMP 97.5
[2021-10-06 15:17] VITALS: O2SAT 100
[2021-10-06 15:20] VITALS: BP 161/119
== END 2021-10-06 15:02 | disposition home or self-care (01) ==
LOC: ER 12:58
DX: N83.291 Other ovarian cyst, right side (principal); F17.210 Nicotine dependence, cigarettes, uncomplicated
CPT/HCPCS: 36415; 74177; 76830; 80053; 81003; 83690; 85025; 96374; 96375; 99284; J2405; Q9967